=== PATIENT | female | born 1960 | race Caucasian/White ===

== ENCOUNTER → 2020-02-15 | Outpatient (CLI) | payer BC ==
[~2020-02-15] MED LIST: ADIPEX-P37.5 MG PO; AMITRIPTYLINE H10 M1 PO; CALCIUM WITH D31 CTB PO; CIPRO 500MG TA500 MG PO; LIDOCAINE CREAM TOP; NORCO 325 MG-51 TAB PO; PHENERGAN 25 TA25 MG PO; PRILOSEC 20MG20 MG PO
== END | disposition still patient (30) ==
LOC: COL.RAD 08:00
DX: E04.2 Nontoxic multinodular goiter (principal)

== ENCOUNTER → 2020-03-07 | Outpatient (CLI) | payer BC ==
[2020-03-07 12:10] VITALS: BP 154/99; PULSE 107
[2020-03-07 12:53] VITALS: BP 158/98; PULSE 72
== END ==
LOC: COL.RAD 11:45
DX: E04.1 Nontoxic single thyroid nodule (principal)